=== PATIENT | female | born 1960 | race Caucasian/White ===

== ENCOUNTER → 2018-05-06 | Outpatient (CLI) | payer OTHER | LOC: FIMAGING 10:19 | PROVIDERS: ATTEND Internal Medicine | DX: Z12.31 Encounter for screening mammogram for malignant neoplasm of breast (principal); Z85.3 Personal history of malignant neoplasm of breast ==

== ENCOUNTER → 2018-10-25 | Outpatient (CLI) | payer OTHER | LOC: BMCIMAGING 12:32 | PROVIDERS: ATTEND Allergy & Immunology Allergy | DX: E04.1 Nontoxic single thyroid nodule (principal) | CPT/HCPCS: 76536-PO ==

== ENCOUNTER → 2018-11-04 | Outpatient (CLI) | payer OTHER ==
[~2018-11-04] MED LIST: LIDOCAINE 1% 300 MG/30 ML SDV ONE
== END ==
LOC: FIMAGING 11:42
PROVIDERS: ATTEND Allergy & Immunology Allergy
PROC: 0G9K3ZX Drainage of Thyroid Gland, Percutaneous Approach, Diagnostic (ICD-10-PCS; principal; 2018-11-04)
DX: E04.1 Nontoxic single thyroid nodule (principal); F17.200 Nicotine dependence, unspecified, uncomplicated

== ENCOUNTER 2018-11-22 11:47 | Emergency (ER) | payer OTHER ==
--- NOTE | 2018-11-22 13:20 | EDPHY ---
H & P Stated Complaint: GEN BODY ACHES AND PAINS 1 YEAR, WORSE OVER LAST MONTH, L SHOULDER WORSE Time Seen by Provider: 11/22/18 13:19 HPI/ROS: CHIEF COMPLAINT: Multiple complaints including acute cough, left shoulder pain , fatigue and weakness. HISTORY OF PRESENT ILLNESS: The patient has a complicated past medical history that surrounds complaints of intermittent facial swelling which led her to see an allergy case specialist to ultimately appreciated a thyroid mass. The patient is scheduled to have surgery on that in the coming weeks. The patient has been screened for hyperthyroidism and that is been normal. She is concerned about the possibility of an undiagnosed malignancy. She does have a history of stage I breast cancer. Over the past several days she has developed generalized myalgias, dry nonproductive cough, pain in her back shoulder and some radiation of the pain into the left arm. The patient denies fever. She denies acute abdominal pain. She denies any acute complaints. The patient was referred to the emergency department for further evaluation by her primary care provider who she is scheduled to see on of this week. REVIEW OF SYSTEMS: A comprehensive 10 point review of systems is otherwise negative aside from elements mentioned in the history of present illness. Source: Patient - Personal History Current Tetanus Diphtheria and Acellular Pertussis (TDAP): Yes - Medical/Surgical History Hx Asthma: No Hx Chronic Respiratory Disease: No Hx Diabetes: No Hx Cardiac Disease: No Hx Renal Disease: No Hx Cirrhosis: No Hx Alcoholism: No Hx HIV/AIDS: No Hx Splenectomy or Spleen Trauma: No - Social History Smoking Status: Never smoked - Physical Exam Exam: General Appearance: Alert, no distress Eyes: Pupils equal and round no pallor or injection ENT, Mouth: Mucous membranes moist Respiratory: There are no retractions, lungs are clear to auscultation Cardiovascular: Regular rate and rhythm Gastrointestinal: Abdomen is soft and nontender, no masses, bowel sounds normal Neurological: A&O, normal motor function, normal sensory exam, normal cranial nerves Skin: Warm and dry, no rashes Musculoskeletal: Neck is supple nontender Extremities: symmetrical, full range of motion Constitutional: Initial Vital Signs Temperature (C) 36.6 C 11/22/18 11:59 Heart Rate 75 11/22/18 11:59 Respiratory Rate 16 11/22/18 11:59 Blood Pressure 113/64 11/22/18 11:59 O2 Sat (%) 97 11/22/18 11:59 O2 Delivery Mode Room Air Allergies/Adverse Reactions: bacitracin [From Neosporin ([id number])] Allergy (Verified 04/02/15 10:14) bacitracin zinc [From Neosporin ([id number])] Allergy (Verified 04/02/15 10: 14) Latex, Natural Rubber Allergy (Verified 11/22/18 13:25) neomycin [From Neosporin ([id number])] Allergy (Verified 11/22/18 13:25) neomycin sulfate [From Neosporin (mdq-mve-xnckr)] Allergy (Verified 04/02/15 10: 14) polymyxin B [From Neosporin (gbi-tfc-ilplx)] Allergy (Verified 04/02/15 10:14) invisalign Allergy (Uncoded 11/22/18 13:25) RESINS Allergy (Uncoded 04/02/15 10:14) topical benadryl Allergy (Uncoded 11/22/18 13:25) Medical Decision Making - Diagnostics EKG Interpretation: EKG: Complete interpretation has been separately recorded in the [employer] archive. Summary impression: Sinus rhythm, rate 59 ED Course/Re-evaluation: Patient presents the ED with multiple confusing complaints. Central to her complaints was back pain, the development of a new cough concerns given her history of breast cancer. We discussed the utility of CT angiogram for evaluation of her chest complaints. She has elected to decline the study. She does have an appointment to see her primary care provider on . The patient was also not interested in having his CBC performed in the emergency department. The patient appears to be stable. Her troponin is normal. Her EKG is nonischemic. She has multiple chronic complaints and I doubt that she is presenting with an acute PE however she understands that we have not fully excluded this is a possibility The patient will be discharged from the emergency department at this point time. She will follow up with her primary care provider as scheduled on . - Data Points Laboratory Results: 11/22/18 11/22/18 15:04 14:09 POC Hgb 14.6 gm/dL gm/dL (12.6-16.3) POC Hct 43 % % (38-47) POC Sodium 142 mEq/L mEq/L (135-145) POC Potassium 3.5 mEq/L mEq/L (3.3-5.0) POC Chloride 103 mEq/L mEq/L (97-110) POC Total CO2 25 mEq/L mEq/L (22-31) POC BUN 12 mg/dL mg/dL (7-23) POC Creatinine 0.7 mg/dL mg/dL (0.6-1.0) POC Glucose 114 mg/dL H mg/dL (70-100) POC Troponin I 0.00 ng/mL ng/mL (0.00-0.08) Point of Care Test Results: Chemistry 11/22/18 11/22/18 15:04 14:09 POC Sodium 142 mEq/L mEq/L (135-145) POC Potassium 3.5 mEq/L mEq/L (3.3-5.0) POC Chloride 103 mEq/L mEq/L (97-110) POC Total CO2 25 mEq/L mEq/L (22-31) POC BUN 12 mg/dL mg/dL (7-23) POC Creatinine 0.7 mg/dL mg/dL (0.6-1.0) POC Glucose 114 mg/dL H mg/dL (70-100) POC Troponin I 0.00 ng/mL ng/mL (0.00-0.08) ISTAT H&H 11/22/18 15:04 POC Hgb 14.6 gm/dL gm/dL (12.6-16.3) POC Hct 43 % % (38-47) Departure - Departure Disposition: Home, Routine, Self-Care Clinical Impression: Back pain Condition: Good Instructions: Chest Pain (ED) Additional Instructions: 1. Please follow up as scheduled with your physicians on . 2. Return to the ED should you reconsider your decision not to have further testing. Referrals: Marychuy Mayers MD [[facility] Primary Care Provider] - As per Instructions
[2018-11-22] MEDS ORDERED: IOPAMIDOL (ISOVUE 370) 100 ML BTL IV ONE ×2 (13:56→15:38)
--- NOTE | 2018-11-22 15:21 | CPEKG ---
Test Reason : OPEN Blood Pressure : / mmHG Vent. Rate : 059 BPM Atrial Rate : 059 BPM P-R Int : 191 ms QRS Dur : 077 ms QT Int : 392 ms P-R-T Axes : 034 067 065 degrees QTc Int : 389 ms Sinus rhythm Minimal ST elevation, inferior leads Confirmed by Diego Jacobs ([id number]) on 11/22/2018 3:20:50 PM Referred By: Diego Jacobs Confirmed By:Diego Jacobs
[2018-11-22 16:12] VITALS: BP 99/72
== END 2018-11-22 16:13 | disposition home or self-care (01) ==
DX: M54.9 Dorsalgia, unspecified (principal); R05 Cough; M25.512 Pain in left shoulder; R53.83 Other fatigue
CPT/HCPCS: 82435-PO; 82565-PO; 82947-PO; 84132-PO; 84295-PO; 84484-ER; 84520-PO; 85014-ER; Q9967